=== PATIENT | female | born 1990 | race Caucasian/White ===

== ENCOUNTER 2016-11-08 17:22 | Emergency (ER) | payer OTHER ==
[2016-11-08 17:31] VITALS: BMI 28.3
[2016-11-08 18:30] VITALS: BP 116/72; PULSE 100; TEMP 97.9
[2016-11-08 18:45] LABS: URINE APPEARANCE CLEAR; URINE BILIRUBIN NEGATIVE (NEGATIVE); URINE BLOOD NEGATIVE (NEGATIVE); URINE COLOR STRAW; URINE GLUCOSE (UA) NEGATIVE (NEGATIVE); URINE KETONE NEGATIVE (NEGATIVE); URINE LEUK ESTERASE NEGATIVE (NEGATIVE); URINE NITRITE NEGATIVE (NEGATIVE); URINE PROTEIN NEGATIVE (NEGATIVE); URINE UROBILINOGEN NEGATIVE mg/dL (0.2-1.0)
[2016-11-08 18:58] LABS: URINE MARIJUANA THC NEGATIVE ng/ml (CUTOFF=50)
[2016-11-08] MEDS ORDERED: DEXTROSE 5%-LACTATED RINGERS 500 ML IV ONE ×2 (19:00→20:00)
== END 2016-11-08 20:40 | disposition home or self-care (01) ==
LOC: JER 17:22
DX: O26.893 Other specified pregnancy related conditions, third trimester (principal); R10.30 Lower abdominal pain, unspecified; Z3A.29 29 weeks gestation of pregnancy
CPT/HCPCS: 76801-TC; 80307; 81003; 87086; 99281-25

== ENCOUNTER 2018-01-16 14:04 | Emergency (ER) | payer OTHER ==
[2018-01-16 14:33] VITALS: BP 153/90; PULSE 94; TEMP 98; BMI 28.3
--- NOTE | 2018-01-16 14:34 | PDOC ---
Rapid Medical Evaluation Time Seen by Provider: 01/16/18 14:30 Medical Evaluation: Allergies Allergy/AdvReac Type Severity Reaction Status Date / Time No Known Allergies Allergy Verified 11/08/16 18:19 I have performed a brief in-person evaluation of this patient. The patient presents with a chief complaint of: right sided neck pain today Pertinent physical exam findings: reproducible pain with palpation to right scalene and trapezius muscles I have ordered the following: hcg The patient will proceed to the ED for further evaluation Discharge Disposition - Diagnosis Neck muscle strain - Referrals - Patient Instructions - Post Discharge Activity
[2018-01-16] MEDS ORDERED: KETOROLAC TROMETHAMINE 60 MG/2 ML VIAL IM ONE (15:45)
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
[2018-01-16] MEDS ORDERED: KETOROLAC TROMETHAMINE 60 MG/2 ML VIAL ONE (15:49)
== END 2018-01-16 17:32 | disposition home or self-care (01) ==
LOC: JERFT 14:04
PROC: 3E0233Z Introduction of Anti-inflammatory into Muscle, Percutaneous Approach (ICD-10-PCS; principal; 2018-01-16)
DX: S16.1XXA Strain of muscle, fascia and tendon at neck level, initial encounter (principal); X58.XXXA Exposure to other specified factors, initial encounter; Y93.89 Activity, other specified; Y92.89 Other specified places as the place of occurrence of the external cause; Y99.8 Other external cause status
CPT/HCPCS: 73030-TC-RT-FY; 84703; 99281-25

== ENCOUNTER 2018-10-10 09:25 | Emergency (ER) | payer OTHER | END 2018-10-10 11:38 | disposition home or self-care (01) | LOC: JERFT 09:25 ==

== ENCOUNTER 2019-06-12 11:23 | Emergency (ER) | payer OTHER ==
[2019-06-12 11:29] VITALS: BMI 29.8
[2019-06-12] MEDS ORDERED: ACETAMINOPHEN 1000 MG/100 ML VIAL (NON FORMULARY) IVPB ONE (12:25)
[2019-06-12] MEDS ORDERED: ACETAMINOPHEN INJECTION 100 ML IVPB ONE (12:27)
[2019-06-12 12:34] LABS: BASO % 0.8 % (0-2.0); EOS % 0.4 % (0-4.5); HEMATOCRIT 35.3 % (32.4-45.2); HEMOGLOBIN 11.9 GM/dL (10.7-15.3); LYMPH % 24.6 % (8-40); MCHC 33.6 g/dl (32.0-36.0); MEAN CELL VOLUME 86.3 fl (80-96); MEAN PLT VOLUME 7.4 fl (7.5-11.1); MONO % 4.6 % (3.8-10.2); NEUT % 69.6 % (42.8-82.8); PLATELET COUNT 466 K/MM3 (134-434); RDW 13.7 % (11.6-15.6)
[2019-06-12 12:59] LABS: ALK PHOS 55 U/L (45-117); ANION GAP 7 MMOL/L (8-16); BILIRUBIN,TOTAL 0.4 mg/dL (0.2-1); CALCIUM 9.3 mg/dL (8.5-10.1); CHLORIDE 104 mmol/L (98-107); CO2 27 mmol/L (21-32); CREATININE 0.7 mg/dL (0.55-1.3); GLUCOSE,RANDOM 83 mg/dL (74-106); POTASSIUM 3.7 mmol/L (3.5-5.1); SGOT/AST 16 U/L (15-37); SGPT/ALT 17 U/L (13-61); SODIUM 138 mmol/L (136-145); TOT PROT 7.4 g/dl (6.4-8.2)
--- NOTE | 2019-06-12 13:17 | PDOC ---
History of Present Illness - General History Source: Patient Exam Limitations: Clinical Condition - History of Present Illness Initial Comments: 06/12/19 13:14 Patient with no significant past medical history present with severe cramping lower abdominal pain status post taking OCP last night. Patient reported has been having vaginal spotting for the past month which she went to [facility] previously prescribed by ARTICULATION OFFICER from the pharmacy and started taking yesterday and started having severe crampy lower abdominal pain. Patient reported irregular menstrual.. Denies nausea, vomiting, vaginal bleeding, urinary frequency, dysuria or urgency. Patient did not take anything for pain. Patient report has not seen ARTICULATION OFFICER for most a year now Is this a multiple visit Asthma Patient?: No Timing/Duration: 24 hours <AndreBuddy - Last Filed: 06/12/19 15:53> <Harini Mosley - Last Filed: 06/12/19 16:00> - General Chief Complaint: Pain Stated Complaint: ABD PAIN Time Seen by Provider: 06/12/19 12:14 Past History - Past Medical History COPD: No - Immunization History Immunization Up to Date: No - Psycho Social/Smoking Cessation Hx Smoking History: Never smoked Have you smoked in the past 12 months: No Information on smoking cessation initiated: No Hx Alcohol Use: No Drug/Substance Use Hx: No Substance Use Type: None <AndreBuddy Donnelly - Last Filed: 06/12/19 15:53> <Harini Mosley - Last Filed: 06/12/19 16:00> - Past Medical History Allergies/Adverse Reactions: Allergies Allergy/AdvReac Type Severity Reaction Status Date / Time No Known Allergies Allergy Verified 06/12/19 11:29 Home Medications: Ambulatory Orders Ibuprofen 800 mg PO Q8H PRN #20 tablet 06/12/19 Review of Systems - Review of Systems Able to Perform ROS?: Yes Is the patient limited Tamaz[place] proficient: No Constitutional: No: Chills, Fever, Malaise HEENTM: No: Symptoms Reported, See HPI, Eye Pain, Blurred Vision, Tearing, Recent change in vision, Double Vision, Cataracts, Ear Pain, Ocular Prothesis, Ear Discharge, Nose Pain, Nose Congestion, Tinnitus, Nose Bleeding, Hearing Loss , Throat Pain, Throat Swelling, Mouth Pain, Dental Problems, Difficulty Swallowing, Mouth Swelling, Other Respiratory: No: Symptoms reported, See HPI, Cough, Orthopnea, Shortness of Breath, SOB with Exertion, SOB at Rest, Stridor, Wheezing, Productive cough, Hemoptysis, Other Cardiac (ROS): No: Symptoms Reported, See HPI, Chest Pain, Edema, Irregular Heart Rate, Lightheadedness, Palpitations, Syncope, Chest Tightness, Other ABD/GI: Yes: Symptoms Reported, See HPI, Abdominal cramping (lower abdominal pain). No: Abdominal Distended, Abd. Pain w/ defecation, Blood Streaked Bowels , Constipated, Diarrhea, Difficulty Swallowing, Nausea, Poor Appetite, Vomiting , Indigestion : No: Symptoms Reported, Burning, Dysuria, Frequency, Urgency Musculoskeletal: No: Symptoms Reported Integumentary: No: Symptoms Reported All Other Systems: Reviewed and Negative <Buddy Powell - Last Filed: 06/12/19 15:53> *Physical Exam - Vital Signs Last Vital Signs Temp Pulse Resp BP Pulse Ox 97.4 F L 76 19 125/78 100 06/12/19 11:26 06/12/19 11:26 06/12/19 11:26 06/12/19 11:26 06/12/19 11:26 - Physical Exam 06/12/19 13:17 GENERAL: Well developed, well nourished. Awake and alert in moderate acute distress. HEENT: Normocephalic, atraumatic. PERRLA, EOMI. No conjunctival pallor. Sclera are non-icteric. Moist mucous membranes. Oropharynx is clear. NECK: Supple. Full ROM. CARDIOVASCULAR: Regular rate and rhythm. No murmurs, rubs, or gallops. Distal pulses are 2+ and symmetric. PULMONARY: No evidence of respiratory distress. Lungs clear to auscultation bilaterally. No wheezing, rales or rhonchi. ABDOMINAL: Soft. Moderate tenderness to suprapubic region with guarding. Non-distended. No rebound No organomegaly. Normoactive bowel sounds. MUSCULOSKELETAL Normal range of motion at all joints. SKIN: Warm and dry. Normal capillary refill. No rashes. No cyanosis. NEUROLOGICAL: Alert, awake, appropriate. Gait is normal without ataxia. PSYCHIATRIC: Cooperative. Good eye contact. Appropriate mood General Appearance: Yes: Nourished, Appropriately Dressed. No: Apparent Distress <Buddy Powell - Last Filed: 06/12/19 15:53> - Vital Signs Last Vital Signs Temp Pulse Resp BP Pulse Ox 97.4 F L 76 19 125/78 100 06/12/19 11:26 06/12/19 11:26 06/12/19 11:26 06/12/19 11:26 06/12/19 11:26 <Harini Mosley - Last Filed: 06/12/19 16:00> ED Treatment Course - LABORATORY CBC & Chemistry Diagram: 06/12/19 12:11 06/12/19 12:11 - ADDITIONAL ORDERS Additional order review: Laboratory Results 06/12/19 12:11 Sodium 138 Potassium 3.7 Chloride 104 Carbon Dioxide 27 Anion Gap 7 L BUN 14.0 Creatinine 0.7 Est GFR (CKD-EPI)AfAm 138.59 Est GFR (CKD-EPI)NonAf 119.58 Random Glucose 83 Calcium 9.3 Total Bilirubin 0.4 AST 16 ALT 17 Alkaline Phosphatase 55 Total Protein 7.4 Albumin 4.0 06/12/19 12:11 RBC 4.10 MCV 86.3 MCHC 33.6 RDW 13.7 MPV 7.4 L Neutrophils % 69.6 Lymphocytes % 24.6 Monocytes % 4.6 Eosinophils % 0.4 Basophils % 0.8 - Medications Given in the ED: ED Medications Discontinued Medications Generic Name Dose Route Start Last Admin Trade Name Freq PRN Reason Stop Dose Admin Acetaminophen 1,000 mg 06/12/19 12:25 06/12/19 12:31 Ofirmev Injection - IVPB 06/12/19 12:26 1,000 mg ONCE ONE Administration <Buddy Powell - Last Filed: 06/12/19 15:53> - LABORATORY CBC & Chemistry Diagram: 06/12/19 12:11 06/12/19 12:11 - ADDITIONAL ORDERS Additional order review: Laboratory Results 06/12/19 06/12/19 06/12/19 13:42 12:11 12:11 Sodium 138 Potassium 3.7 Chloride 104 Carbon Dioxide 27 Anion Gap 7 L BUN 14.0 Creatinine 0.7 Est GFR (CKD-EPI)AfAm 138.59 Est GFR (CKD-EPI)NonAf 119.58 Random Glucose 83 Calcium 9.3 Total Bilirubin 0.4 AST 16 ALT 17 Alkaline Phosphatase 55 Total Protein 7.4 Albumin 4.0 Lipase 79 Beta HCG, Quant < 1.0 Urine Color Yellow Urine Appearance Clear Urine pH 6.5 Ur Specific Elbe 1.015 Urine Protein Negative Urine Glucose (UA) Negative Urine Ketones Negative Urine Blood 2+ H Urine Nitrite Negative Urine Bilirubin Negative Urine Urobilinogen 0.2 Ur Leukocyte Esterase Negative Urine WBC (Auto) 1 Urine RBC (Auto) 1 Urine Casts (Auto) 1 U Epithel Cells (Auto) 1.9 Urine Bacteria (Auto) 59.9 Blood Type O POSITIVE Antibody Screen Negative 06/12/19 12:11 RBC 4.10 MCV 86.3 MCHC 33.6 RDW 13.7 MPV 7.4 L Neutrophils % 69.6 Lymphocytes % 24.6 Monocytes % 4.6 Eosinophils % 0.4 Basophils % 0.8 - Medications Given in the ED: ED Medications Discontinued Medications Generic Name Dose Route Start Last Admin Trade Name Ramy PRN Reason Stop Dose Admin Acetaminophen 1,000 mg 06/12/19 12:25 06/12/19 12:31 Ofirmev Injection - IVPB 06/12/19 12:26 1,000 mg ONCE ONE Administration Ketorolac Tromethamine 30 mg 06/12/19 15:09 06/12/19 15:38 Toradol Injection - IM 06/12/19 15:10 Not Given ONCE ONE Ketorolac Tromethamine 15 mg 06/12/19 15:24 06/12/19 15:37 Toradol Injection - IM 06/12/19 15:25 15 mg ONCE ONE Administration <Harini Mosley - Last Filed: 06/12/19 16:00> Medical Decision Making - Medical Decision Making 06/12/19 12:15 Patient with no significant past medical history present with severe cramping lower abdominal pain status post taking OCP last night. Patient reported has been having vaginal spotting for the past month which she went to [facility] previously prescribed by ARTICULATION OFFICER from the pharmacy and started taking yesterday and started having severe crampy lower abdominal pain. Patient reported irregular menstrual.. Denies nausea, vomiting, vaginal bleeding, urinary frequency, dysuria or urgency. Patient did not take anything for pain. Patient report has not seen ARTICULATION OFFICER for most a year now Exam significant for severe suprapubic tenderness patient guarding lower abdomen and moaning in pain. Normal cardio exam. No vaginal bleeding on exam. Symptoms likely abdominal cramping from ovulatory pain versus . Tylenol 1 g IV ordered for pain. CBC, CMP and serum hCG lab ordered. Treat based on lab results. We will likely order vaginal ultrasound 06/12/19 13:51 Patient reported complete improvement of pain with IV Tylenol. CBC and CMP lab within normal limits. Serum test negative. Patient pending pelvic ultrasound 06/12/19 15:53 Patient had reported mild pain which improved with 15 mg IV Toradol. Pelvic ultrasound shows no acute abnormality. Patient symptoms likely from menstrual cramps and stable for discharge ibuprofen PRN for pain with ARTICULATION OFFICER follow-up <Buddy Powell - Last Filed: 06/12/19 15:53> - Medical Decision Making The patient was seen and evaluated in conjunction with midlevel provider under my direct supervision, ancillary studies were reviewed. I agree with the plan as outlined with LAURA Powell. HPI, workup/dispo as outlined. VS reviewed, wnl. Labs and lites are within normal limits, not , UA is unremarkable. Retroverted normal-sized uterus without fibroids or masses, small simple cyst versus dominant follicle in the right ovary, no evidence of torsion. Anticipate discharge, pcp followup, return precautions 06/12/19 16:00 <Harini Mosley - Last Filed: 06/12/19 16:00> Discharge - Discharge Information Problems reviewed: Yes - Admission No <Buddy Powell - Last Filed: 06/12/19 15:53> <Harini Mosley - Last Filed: 06/12/19 16:00> - Discharge Information Clinical Impression/Diagnosis: Menstrual cramps Abdominal pain Qualifiers: Abdominal location: lower abdomen, unspecified Qualified Code(s): R10.30 - Lower abdominal pain, unspecified Condition: Improved Disposition: HOME - Additional Discharge Information Prescriptions: Ibuprofen 800 mg PO Q8H PRN #20 tablet PRN Reason: pain - Patient Discharge Instructions Patient Printed Discharge Instructions: DI for Dysmenorrhea Additional Instructions: Your blood work was normal. Your abdominal ultrasound was normal and shows no acute normality. Your abdominal pain was likely from cramping from hormonal. Take prescribed medication as needed for pain. Follow-up with your ARTICULATION OFFICER
[2019-06-12 13:33] LABS: LIPASE 79 U/L (73-393)
[2019-06-12 14:13] LABS: EPI CELLS 1.9 /HPF (0-5/HPF); HYALINE CASTS 1 /lpf (0-8); PH,URINE 6.5 (5.0-8.0); URINE APPEARANCE CLEAR; URINE BACTERIA 59.9 /hpf (NEGATIVE); URINE BILIRUBIN NEGATIVE (NEGATIVE); URINE COLOR YELLOW; URINE GLUCOSE (UA) NEGATIVE (NEGATIVE); URINE KETONE NEGATIVE (NEGATIVE); URINE LEUK ESTERASE NEGATIVE (NEGATIVE); URINE NITRITE NEGATIVE (NEGATIVE); URINE PROTEIN NEGATIVE (NEGATIVE); URINE RBC 1 /hpf (0-4); URINE UROBILINOGEN 0.2 mg/dL (0.2-1.0); URINE WBC 1 /hpf (0-5)
[2019-06-12] MEDS ORDERED: KETOROLAC TROMETHAMINE 15 MG/ML VIAL IM ONE ×2 (15:09→15:24)
[2019-06-12] MEDS ORDERED: KETOROLAC TROMETHAMINE 15 MG/ML VIAL ONE (15:31)
[2019-06-12 16:03] VITALS: BP 106/70; PULSE 100; TEMP 98.1
== END 2019-06-12 16:12 | disposition home or self-care (01) ==
LOC: JER 11:23
PROC: 3E0233Z Introduction of Anti-inflammatory into Muscle, Percutaneous Approach (ICD-10-PCS; principal; 2019-06-12)
PROC: 3E033NZ Introduction of Analgesics, Hypnotics, Sedatives into Peripheral Vein, Percutaneous Approach (ICD-10-PCS; 2019-06-12)
DX: N94.6 Dysmenorrhea, unspecified (principal); Z79.3 Long term (current) use of hormonal contraceptives
CPT/HCPCS: 36415; 76830-TC; 80053; 81003; 83690; 84702; 85025; 86850; 86900; 86901; 87086; 96372; 96374; 99285-25; J0131

== ENCOUNTER 2020-09-06 17:11 | Emergency (ER) | payer OTHER ==
[2020-09-06 17:18] VITALS: BMI 28.3
[2020-09-06 18:24] LABS: HCG,QUALITATIVE URINE Positive
[2020-09-06 18:48] LABS: EPI CELLS >36 /uL (0-25.1); HYALINE CASTS 1 /uL (0-3.1); URINE APPEARANCE CLEAR; URINE BACTERIA 637 /uL (0-1359); URINE BILIRUBIN NEGATIVE (NEGATIVE); URINE COLOR YELLOW; URINE GLUCOSE (UA) NEGATIVE (NEGATIVE); URINE KETONE NEGATIVE (NEGATIVE); URINE LEUK ESTERASE TRACE (NEGATIVE); URINE NITRITE NEGATIVE (NEGATIVE); URINE PROTEIN NEGATIVE (NEGATIVE); URINE RBC 2 /uL (0-23.9); URINE UROBILINOGEN 0.2 mg/dL (0.2-1.0); URINE WBC 40 /uL (0-25.8)
[2020-09-06] MEDS ORDERED: CEPHALEXIN MONOHYDRATE 500 MG CAPSULE (UD) PO ONE (19:54)
[2020-09-06] MEDS ORDERED: CEPHALEXIN MONOHYDRATE 500 MG CAPSULE (UD) ONE (20:04)
[2020-09-06 20:14] VITALS: BP 103/62; PULSE 83; TEMP 98.6
== END 2020-09-06 21:21 | disposition home or self-care (01) ==
LOC: JER 17:11
DX: N93.0 Postcoital and contact bleeding (principal)
CPT/HCPCS: 81003; 84703; 87086; 99284-25

== ENCOUNTER 2020-12-20 09:43 | Emergency (ER) | payer OTHER ==
[2020-12-20] MEDS ORDERED: SODIUM CHLORIDE 1,000 ML IV STA (10:04)
[2020-12-20 10:18] VITALS: BMI 26.6
[2020-12-20 10:45] LABS: BASO % 0.2 % (0-2.0); HEMATOCRIT 34.8 % (32.4-45.2); HEMOGLOBIN 11.8 GM/dL (10.7-15.3); LYMPH % 15.9 % (8-40); MEAN CELL VOLUME 82.4 fl (80-96); MEAN PLT VOLUME 7.6 fl (7.5-11.1); MONO % 3.9 % (3.8-10.2); PLATELET COUNT 342 10^3/uL (134-434); RBC 4.22 M/mm3 (3.60-5.2); RDW 18.5 % (11.6-15.6); WHITE BLOOD COUNT 10.2 K/mm3 (4.0-10.0)
[2020-12-20 10:50] LABS: EPI CELLS 11 /uL (0-25.1); HYALINE CASTS 1 /uL (0-3.1); URINE APPEARANCE CLEAR; URINE BACTERIA 92 /uL (0-1359); URINE BILIRUBIN NEGATIVE (NEGATIVE); URINE COLOR YELLOW; URINE GLUCOSE (UA) NEGATIVE (NEGATIVE); URINE KETONE NEGATIVE (NEGATIVE); URINE LEUK ESTERASE NEGATIVE (NEGATIVE); URINE NITRITE NEGATIVE (NEGATIVE); URINE PROTEIN NEGATIVE (NEGATIVE); URINE RBC 85 /uL (0-23.9); URINE UROBILINOGEN 0.2 mg/dL (0.2-1.0); URINE WBC 7 /uL (0-25.8)
[2020-12-20 11:03] LABS: CALCIUM 8.9 mg/dL (8.5-10.1)
[2020-12-20 11:04] LABS: ALBUMIN 3.2 g/dl (3.4-5.0); BLOOD UREA NITROGEN 6.8 mg/dL (7-18)
[2020-12-20 11:07] LABS: CREATININE 0.6 mg/dL (0.55-1.3)
[2020-12-20 11:08] LABS: BILIRUBIN,TOTAL 0.4 mg/dL (0.2-1)
[2020-12-20 11:09] LABS: TOT PROT 7.4 g/dl (6.4-8.2)
[2020-12-20 14:39] VITALS: BP 100/54; PULSE 81; TEMP 98.4
== END 2020-12-20 14:55 | disposition home or self-care (01) ==
LOC: JER 09:43
PROC: 3E0337Z Introduction of Electrolytic and Water Balance Substance into Peripheral Vein, Percutaneous Approach (ICD-10-PCS; principal; 2020-12-20)
DX: O26.892 Other specified pregnancy related conditions, second trimester (principal); R10.9 Unspecified abdominal pain; Z3A.22 22 weeks gestation of pregnancy
CPT/HCPCS: 36415; 76815-TC; 80053; 81003; 85025; 87086; 99284-25

== ENCOUNTER 2021-07-26 07:14 | Emergency (ER) | payer OTHER ==
[2021-07-26 07:39] VITALS: BMI 29.9
[2021-07-26] MEDS ORDERED: ONDANSETRON 4 MG/2 ML VIAL IVPUSH ONE (09:33)
[2021-07-26] MEDS ORDERED: morphine CARPU-JECT 4 MG/1 ML DISP.SYRIN IVPUSH ONE ×2 (09:45→17:17)
[2021-07-26] MEDS ORDERED: SODIUM CHLORIDE 0.9% 500 ML INFUS.BAG IV ONE (09:50)
[2021-07-26] MEDS ORDERED: ONDANSETRON 4 MG/2 ML VIAL ONE (10:08)
[2021-07-26] MEDS ORDERED: morphine SULFATE 4 MG/ML VIAL ONE ×2 (10:08→17:15)
[2021-07-26 10:18] LABS: BASO % 0.4 % (0-2.0); EOS % 0.8 % (0-4.5); HEMATOCRIT 39.2 % (32.4-45.2); HEMOGLOBIN 12.8 GM/dL (10.7-15.3); LYMPH % 16.8 % (8-40); MCH 27.1 pg (25.7-33.7); MCHC 32.7 g/dl (32.0-36.0); MEAN CELL VOLUME 82.7 fl (80-96); MEAN PLT VOLUME 7.3 fl (7.5-11.1); PLATELET COUNT 446 10^3/uL (134-434); RBC 4.74 M/mm3 (3.60-5.2); RDW 13.8 % (11.6-15.6); WHITE BLOOD COUNT 11.1 K/mm3 (4.0-10.0)
[2021-07-26 10:33] LABS: ACTIVATED PTT 34.6 SECONDS (25.2-36.5); INR 1.04 (0.83-1.09)
[2021-07-26 10:51] LABS: BLOOD UREA NITROGEN 11.6 mg/dL (7-18); CALCIUM 8.9 mg/dL (8.5-10.1)
[2021-07-26 10:54] LABS: CREATININE 0.7 mg/dL (0.55-1.3)
[2021-07-26 10:56] LABS: BILIRUBIN,TOTAL 0.3 mg/dL (0.2-1); TOT PROT 7.8 g/dl (6.4-8.2)
[2021-07-26 11:35] LABS: EPI CELLS 1 /uL (0-25.1); HYALINE CASTS 0 /uL (0-3.1); PH,URINE 5.5 (5.0-8.0); URINE APPEARANCE CLEAR; URINE BACTERIA 1 /uL (0-1359); URINE BILIRUBIN NEGATIVE (NEGATIVE); URINE COLOR YELLOW; URINE GLUCOSE (UA) NEGATIVE (NEGATIVE); URINE KETONE NEGATIVE (NEGATIVE); URINE LEUK ESTERASE NEGATIVE (NEGATIVE); URINE NITRITE NEGATIVE (NEGATIVE); URINE PROTEIN NEGATIVE (NEGATIVE); URINE RBC 3 /uL (0-23.9); URINE UROBILINOGEN 0.2 mg/dL (0.2-1.0); URINE WBC 2 /uL (0-25.8)
[2021-07-26] MEDS ORDERED: KETOROLAC TROMETHAMINE 30 MG/1 ML VIAL IVPUSH ONE (14:32)
[2021-07-26] MEDS ORDERED: KETOROLAC TROMETHAMINE 30 MG/1 ML VIAL ONE (15:35)
[2021-07-26 15:54] VITALS: TEMP 97.8
[2021-07-26 16:03] LABS: BASO % 0.5 % (0-2.0); EOS % 0.9 % (0-4.5); HEMATOCRIT 34.4 % (32.4-45.2); HEMOGLOBIN 11.8 GM/dL (10.7-15.3); LYMPH % 24.4 % (8-40); MCH 28.3 pg (25.7-33.7); MCHC 34.4 g/dl (32.0-36.0); MEAN CELL VOLUME 82.3 fl (80-96); MONO % 5.3 % (3.8-10.2); NEUT % 68.9 % (42.8-82.8); PLATELET COUNT 388 10^3/uL (134-434); RBC 4.18 M/mm3 (3.60-5.2); RDW 13.8 % (11.6-15.6); WHITE BLOOD COUNT 10.6 K/mm3 (4.0-10.0)
[2021-07-26 20:50] VITALS: BP 91/68; PULSE 65
== END 2021-07-26 20:51 | disposition home or self-care (01) ==
LOC: JER 07:14
PROC: 3E033GC Introduction of Other Therapeutic Substance into Peripheral Vein, Percutaneous Approach (ICD-10-PCS; principal; 2021-07-26)
DX: R10.84 Generalized abdominal pain (principal)
CPT/HCPCS: 36415; 74177-TC; 76830-TC; 80053; 81003; 83690; 84703; 85025; 85610; 85730; 86850; 86900; 86901; 87086; 99285-25; Q9967